=== PATIENT | male | born 1950 | race Caucasian/White ===

== ENCOUNTER 2016-11-14 17:53 | Emergency (ER) | payer SELFPAY ==
[2016-11-14 17:57] VITALS: BP 151/74; PULSE 89; TEMP 98.4; BMI 25.0
--- NOTE | 2016-11-14 18:47 | PDOC ---
History of Present Illness - History of Present Illness Initial Comments: 11/14/16 20:01 Patient is a 65 year old male with significant medical hx of psoriasis and ETOH abuse who has been sent to the ED from [facility] for "medicine for his psoriasis". The patient is complaining of psoriasis to his arms, trunk and chest. He states that he hasn't seen a doctor in a long time and denies taking any medication for his psoriasis at this time. The patient is a poor historian. His last drink was on 11/10/2016. Denies fevers, chills, or pain. <Natasha Cedeño - Last Filed: 11/14/16 20:08> <Ry Naik - Last Filed: 11/14/16 21:30> - General Chief Complaint: Rash Stated Complaint: ALLERGIC REACTION Time Seen by Provider: 11/14/16 18:05 Past History <Natasha Cedeño - Last Filed: 11/14/16 20:08> - Past Medical History Other medical history: DENIES. - Psycho/Social/Smoking Cessation Hx Anxiety: No Suicidal Ideation: No Smoking History: Never smoked Have you smoked in the past 12 months: No Hx Alcohol Use: Yes Drug/Substance Use Hx: No Substance Use Type: Alcohol <Ry Naik - Last Filed: 11/14/16 21:30> - Past Medical History Allergies/Adverse Reactions: Allergies Allergy/AdvReac Type Severity Reaction Status Date / Time No Known Allergies Allergy Verified 11/14/16 17:54 Home Medications: Ambulatory Orders Prednisone [Prednisone 50 MG TABLETS] 50 mg PO BID #10 tablet MDD 2 11/14/16 Review of Systems - Review of Systems Comments:: 11/14/16 20:05 GENERAL/CONSTITUTIONAL: No fever or chills. No weakness. HEAD, EYES, EARS, NOSE AND THROAT: No change in vision. No ear pain or discharge. No sore throat. CARDIOVASCULAR: No chest pain or shortness of breath. RESPIRATORY: No cough, wheezing, or hemoptysis. GASTROINTESTINAL: No nausea, vomiting, diarrhea or constipation. GENITOURINARY: No dysuria, frequency, or change in urination. MUSCULOSKELETAL: No joint or muscle swelling or pain. No neck or back pain. ENDOCRINE: No increased thirst. No abnormal weight change. SKIN: Psoriasis to chest, arms, trunk. NEUROLOGIC: No headache, vertigo, loss of consciousness, or change in strength/ sensation. <GalaDeclanNatasha - Last Filed: 11/14/16 20:08> *Physical Exam - Vital Signs Last Vital Signs Temp Pulse Resp BP Pulse Ox 98.4 F 89 18 151/74 99 11/14/16 17:53 11/14/16 17:53 11/14/16 17:53 11/14/16 17:53 11/14/16 17:53 - Physical Exam Comments: 11/14/16 20:06 GENERAL: Awake, alert, and fully oriented, in no acute distress. Not tremulous. No shaking. HEAD: No signs of trauma EYES: PERRLA, EOMI, sclera anicteric, conjunctiva clear ENT: Auricles normal inspection, hearing grossly normal, nares patent, oropharynx clear without exudates. Moist mucosa NECK: Normal ROM, supple, no lymphadenopathy, JVD, or masses LUNGS: Breath sounds equal, clear to auscultation bilaterally. No wheezes, and no crackles HEART: Regular rate and rhythm, normal S1 and S2, no murmurs, rubs or gallops ABDOMEN: Soft, nontender, normoactive bowel sounds. No guarding, no rebound. No masses EXTREMITIES: Normal range of motion, no edema. No clubbing or cyanosis. No cords, erythema, or tenderness NEUROLOGICAL: Cranial nerves II through XII grossly intact. Normal speech, normal gait SKIN: Warm, Dry, normal turgor. Psoriasis all over skin. HEMATOLOGIC/LYMPHATIC: No anemia, easy bleeding, or history of blood clots. ALLERGIC/IMMUNOLOGIC: No hives or skin allergy. <GalaNatasha - Last Filed: 11/14/16 20:08> - Vital Signs Last Vital Signs Temp Pulse Resp BP Pulse Ox 98.4 F 89 18 151/74 99 11/14/16 17:53 11/14/16 17:53 11/14/16 17:53 11/14/16 17:53 11/14/16 17:53 <Ry Naik - Last Filed: 11/14/16 21:30> ED Treatment Course - LABORATORY CBC & Chemistry Diagram: 11/14/16 20:35 11/14/16 20:35 <Ry Naik - Last Filed: 11/14/16 21:30> *DC/Admit/Observation/Transfer - Attestations Scribe Attestion: 11/14/16 20:06 Documentation prepared by Natasha Cedeño, acting as medical oncologist for Ry Naik MD. <Natasha Cedeño - Last Filed: 11/14/16 20:08> - Discharge Dispostion Admit: No - Attestations Physician Attestion: 11/14/16 18:47 I, Dr. Ry Naik, attest that this document has been prepared under my direction and personally reviewed by me in its entirety. I further attest, that it accurately reflects all work, treatment, procedures and medical decision -making performed by me. <Ry Naik - Last Filed: 11/14/16 21:30> Diagnosis at time of Disposition: Psoriasis and similar disorders, Chronic alcoholism, Hepatic insufficiency, Hepatic encephalopathy - Discharge Dispostion Disposition: HOME Condition at time of disposition: Good - Prescriptions Prescriptions: Prednisone [Prednisone 50 MG TABLETS] 50 mg PO BID #10 tablet MDD 2 - Patient Instructions Printed Discharge Instructions: Alcohol Use Disorder, DI for Alcohol Abuse, DI for Psoriasis, Hepatic Encephalopathy, DI for Cirrhosis Additional Instructions: Mr Jernigan- You really need to stop using alcohol altogether..... you liver is already compromised and not able to clear ammonia from your blood- this will make you confused. Your liver is not able to metabolize bilirubin like it should....... each drink of alcohol for you now is like a dose of poison. You should follow up with an front loader residential driver. Please call and make an appointment as soon as possible. Best- Dr. Ry Naik- The prednisone will make the rash improve, but it wont be able to cure it.
[2016-11-14] MEDS ORDERED: methylPREDNISolone NA SUCC 125 MG/2 ML VIAL IVPB ONE (20:13)
[2016-11-14 20:48] LABS: WHITE BLOOD COUNT 4.8 K/mm3 (4.0-10.0)
[2016-11-14 20:51] LABS: BASOPHIL 1.4 % (0-2.0); EOSINOPHIL 10.4 % (0-4.5); MCH 31.9 pg (25.7-33.7); MEAN CELL VOLUME 96.7 fl (80-96); MEAN PLT VOLUME 8.7 fl (7.5-11.1); NEUTROPHILS 65.2 % (42.8-82.8); PLATELET COUNT 120 K/MM3 (134-434); RDW 13.7 % (11.9-15.9)
[2016-11-14 21:00] LABS: INR 1.43 (0.82-1.09); PROTHROMBIN TIME (PATIENT) 15.9 SEC (9.98-11.88)
[2016-11-14 21:12] LABS: ALBUMIN 2.7 g/dl (3.4-5.0); ALK PHOS 176 U/L (45-117); ANION GAP 9 (8-16); BILIRUBIN,DIRECT 0.7 mg/dL (0.0-0.2); BILIRUBIN,TOTAL 1.1 mg/dL (0.2-1.0); CALCIUM 8.3 mg/dL (8.5-10.1); CO2 25 mmol/L (21-32); CREATININE 1.1 mg/dL (0.7-1.3); GLUCOSE,RANDOM 143 mg/dL (74-106); SGOT/AST 47 U/L (15-37); SGPT/ALT 30 U/L (12-78); TOT PROT 7.1 g/dl (6.4-8.2)
[2016-11-14 21:42] LABS: URINE APPEARANCE CLOUDY; URINE BLOOD NEGATIVE (NEGATIVE); URINE COLOR AMBER; URINE GLUCOSE (UA) NEGATIVE (NEGATIVE); URINE KETONE TRACE (NEGATIVE); URINE LEUK ESTERASE NEGATIVE (NEGATIVE); URINE NITRITE NEGATIVE (NEGATIVE); URINE UROBILINOGEN 4.0 E.U/dl mg/dL (0.2-1.0)
[2016-11-14 21:46] LABS: URINE PROTEIN 1+ (NEGATIVE)
[2016-11-14 21:53] LABS: URINE HYALINE CAST 35 /lpf; URINE MUCUS FEW; URINE RBC 3 /hpf (0-3); URINE WBC 1 /hpf (3-5)
== END 2016-11-14 21:48 | disposition home or self-care (01) ==
LOC: JER 17:53
PROC: 3E0333Z Introduction of Anti-inflammatory into Peripheral Vein, Percutaneous Approach (ICD-10-PCS; principal; 2016-11-14)
DX: L40.9 Psoriasis, unspecified (principal); F10.20 Alcohol dependence, uncomplicated
CPT/HCPCS: 36415; 80053; 80076; 81003; 81015; 82140; 85025; 85610; 99282-25